=== PATIENT | female | born 1960 | race Caucasian/White ===

== ENCOUNTER → 2018-03-02 | Outpatient (CLI) | payer BC, OTHER ==
[~2018-03-02] MED LIST: ALEVE220 M1 PO; APAP650 PO; AUGMENTIN 875875 M1 PO; CLARITIN10 MG PO; ESTRACE1 MG PO; KEFLEX500 MG PO; LEVOXYL300 MCG PO; LEVOXYL50 MCG PO; LORTAB PO; MIRALAX255 GM; MULTIVITAMINS PO; NABUMETONE 750750 M1 PO; NAPROSYN500 MG PO; NORCO 5-325 TA1 EACH PO; SUDAFED30 MG PO; VITAMIN D1000 UNI1 PO; VITAMINC500 PO; ZOFRAN ODT4 MG PO
== END ==
LOC: CAT 07:48
DX: K76.0 Fatty (change of) liver, not elsewhere classified (principal); K43.9 Ventral hernia without obstruction or gangrene; M47.815 Spondylosis without myelopathy or radiculopathy, thoracolumbar region; M41.85 Other forms of scoliosis, thoracolumbar region

== ENCOUNTER → 2018-05-22 | Outpatient (CLI) | payer BC, OTHER | LOC: ULTRA 07:48 | DX: K76.0 Fatty (change of) liver, not elsewhere classified (principal); R10.12 Left upper quadrant pain ==

== ENCOUNTER → 2018-06-12 | Outpatient (CLI) | payer BC, OTHER | LOC: NUC 09:02 | DX: R10.32 Left lower quadrant pain (principal); R11.0 Nausea ==

== ENCOUNTER 2018-07-20 05:51 | Inpatient (IN) | payer BC, OTHER ==
[~2018-07-20] VITALS: Ht 167.6 cm; Wt 107.5 kg
--- NOTE | ~2018-07-20 | EKG ---
[address] [address] ELECTROCARDIOGRAM REPORT Name: MARY ANNEMINASTEPHAN Vaughn Room #: 150-8 ADM IN M.R.#: [id number] Admission: 07/20/18 Attend Phys: Barbara Marrero MD, Discharge: Date of : 56 Report #: [id number] THIS REPORT FOR: //name// [facility] Test Date: 2018-07-20 Test Time: 09:20:46 Pat Name: STEPHAN TORRE Department: Room: 150 8 Gender: F International Logistics Manager: FARSHAD : 1960 Requested By: Barbara Marrero Order Number: [id number] MD: Dewayne Loza Measurements Intervals [place] Rate: 79 P: 37 AK: 166 QRS: -4 QRSD: 89 T: 44 QT: 409 QTc: 469 Interpretive Statements Sinus rhythm Abnormal R-wave progression, early transition Borderline T wave abnormalities Compared to ECG 06/23/2015 06:46:48 T-wave abnormality now present Electronically Signed On 07-20-2018 16:40:40 BAKERY DECORATOR by Dewayne Loza [email or web address] <ELECTRONICALLY SIGNED> By: Dewayne Loza MD, FAC 07/20/18 1640 9 9 Dewayne Loza MD, [facility] /EPI
--- NOTE | ~2018-07-20 | PATH ---
[facility] [address] [place] [address] PATHOLOGY RPT PROCEDURE Name: WILFREDOHusamERIKARandolphMARY ELLEN Room #: 450-P ADM IN M.R.#: [id number] Admission: 07/20/18 Date of : 56 Discharge: Report #: [id number] Path Case #: [id number] [facility] Accession Number: [id number] . 01 Material submitted: . PART A: ABDOMINAL WALL FASCIA AND MESH PART B: HERNIA SAC . 01 Clinical history: . Ventral hernia, recurrent . 02 Diagnosis: A. Abdominal wall fascia and mesh, repair: - Dense fibrovascular connective tissue along with mesh material. . B. Hernia sac, repair: - Congested fibrovascular connective tissue lined by mesothelium associated with focal chronic inflammation, consistent with hernia sac. (IUV/db; 07/21/18) LBQ/07/21/2018 . 02 Electronically signed: . Muna Guido MD, Pathologist NPI- [id number] . 01 Gross description: . A. The specimen is received in formalin, labeled "Mary Ellen Levine, abdominal wall fascia and mesh", is a pink-thorpe synthetic mesh measuring 18 x 10 with an average less than 0.1 cm thickness partially covered by yellow lobulated adipose tissue. Also received is an elongated fragment of beverly-white rubbery soft tissue measuring 6.0 x 2.2 x 1.0 cm, serially section and a representative phlebotomy services tissue is submitted in A1. A photograph of synthetic is taken. . B. The specimen is received in formalin, labeled "Mary Ellen Levine, hernia sac", are two fibro-membranous segments with attached yellow lobulated adipose tissue measuring 8.0 x 4.0 x 0.6 cm (B1) and 18 x 11 x 0.4 cm (B2). No discrete nodules or masses identified. Bullet Maker tissue is submitted in B1-B2. (SWS; 07/20/2018) [facility] . 02 Pathologist provided ICD-10: K43.2 . 02 CPT . 621508, [id number] [address] [address] PATHOLOGY RPT PROCEDURE Name: WILFREDOHusamMARY ELLEN ENRIQUEZ Room #: 450-P ADM IN M.R.#: [id number] Admission: 07/20/18 Date of : 56 Discharge: Report #: [id number] Path Case #: [id number] Specimen Comment: A courtesy copy of this report has been sent to Specimen Comment: [phone], . Specimen Comment: Report sent to / DR BRAGA Specimen Comment: A duplicate report has been generated due to demographic updates. Performed at: [address], [place] [id number] MD Jeb Ng MD Phone: [phone] Performed at: [address] [id number] MD Muna Guido MD Phone: [phone]
[~2018-07-20 05:51] MED LIST changes: +OMEPRAZOLE40 MG PO
[2018-07-20 09:15] LABS: HEMATOCRIT 44.8 % (37.0-47.0); HEMOGLOBIN 14.6 gm/dL (12.0-15.0)
[2018-07-20 12:47] VITALS: BP 156/86
[2018-07-20 18:00] VITALS: BP 131/80
[2018-07-20 18:30] VITALS: BP 127/83
[2018-07-20 19:00] VITALS: BP 124/78
[2018-07-20 20:18] VITALS: BP 112/72
[2018-07-20 21:22] VITALS: BP 112/72
[2018-07-21 03:51] VITALS: BP 111/78
[2018-07-21 05:10] LABS: CALCIUM 8.8 mg/dL (8.5-10.1); CREATININE 0.8 mg/dL (0.6-1.0); POTASSIUM 4.2 mmol/L (3.5-5.1)
[2018-07-21 05:32] LABS: MCH 30.4 pg (26.0-34.0); MCV 89.6 fL (80.0-100.0); RBC 4.14 mil/uL (4.20-5.00); RDW 13.2 % (10.5-14.5); WBC 10.8 thou/uL (4.0-11.0)
[2018-07-21 05:42] LABS: HEMOGLOBIN 12.6 gm/dL (12.0-15.0)
[2018-07-21 08:30] VITALS: BP 107/66
[2018-07-21 11:55] VITALS: BP 99/62
[2018-07-21 16:15] VITALS: BP 117/68
[2018-07-21 19:02] VITALS: BP 117/74
[2018-07-22 04:55] VITALS: BP 132/89
[2018-07-22 05:51] LABS: ABSOLUTE NEUTROPHILS 4.3 thou/uL (1.4-8.2); BASOPHILS 0.7 % (0.0-2.0); EOSINOPHILS 4.7 % (0.0-3.0); HEMATOCRIT 36.5 % (37.0-47.0); HEMOGLOBIN 12.2 gm/dL (12.0-15.0); LYMPHOCYTES 23.9 % (24.0-44.0); MCH 30.5 pg (26.0-34.0); MCHC 33.5 g/dL (28.0-37.0); MONOCYTES 9.5 % (1.0-8.0); PLATELET COUNT 202 thou/uL (150-400); POLYS 61.2 % (36.0-66.0); RBC 4.01 mil/uL (4.20-5.00); RDW 13.2 % (10.5-14.5)
[2018-07-22 06:04] LABS: CALCIUM 8.6 mg/dL (8.5-10.1); CREATININE 0.8 mg/dL (0.6-1.0)
[2018-07-22 07:24] VITALS: BP 113/71
[2018-07-22 14:20] VITALS: BP 118/66
[2018-07-22 19:04] VITALS: BP 125/74
[2018-07-23 01:45] VITALS: BP 135/78
[2018-07-23 05:31] LABS: BASOPHILS 0.4 % (0.0-2.0); EOSINOPHILS 10.5 % (0.0-3.0); HEMATOCRIT 36.6 % (37.0-47.0); MCH 29.6 pg (26.0-34.0); MCHC 32.9 g/dL (28.0-37.0); MCV 90.1 fL (80.0-100.0); MONOCYTES 9.7 % (1.0-8.0); PLATELET COUNT 225 thou/uL (150-400); POLYS 58.4 % (36.0-66.0); RBC 4.06 mil/uL (4.20-5.00); RDW 12.7 % (10.5-14.5); WBC 6.9 thou/uL (4.0-11.0)
[2018-07-23 05:42] LABS: CALCIUM 8.9 mg/dL (8.5-10.1); CREATININE 0.7 mg/dL (0.6-1.0); POTASSIUM 4.2 mmol/L (3.5-5.1)
[2018-07-23 07:01] VITALS: BP 126/79
[2018-07-23 15:28] VITALS: BP 126/79
== END 2018-07-23 17:54 | disposition home or self-care (01) | DRG 355 ==
LOC: PRE 05:51 → TBA 07:19 → PRE 10:47 → 4W 17:49
PROVIDERS: Surgery
PROC: 0WUF0JZ Supplement Abdominal Wall with Synthetic Substitute, Open Approach (ICD-10-PCS; principal; 2018-07-20)
PROC: 0JQ80ZZ Repair Abdomen Subcutaneous Tissue and Fascia, Open Approach (ICD-10-PCS; principal; 2018-07-20)
DX: K43.0 Incisional hernia with obstruction, without gangrene (principal); E66.9 Obesity, unspecified; Z68.38 Body mass index [BMI] 38.0-38.9, adult; Z79.899 Other long term (current) drug therapy
CPT/HCPCS: 10047; 50010; 50101; 50386; 50455; 50953; 51412; 51437; 56524; 56525; 56527; 56530; 57092; 57190; 62110; 62900; 65002; 65075; 70005

== ENCOUNTER → 2020-06-01 | Outpatient (CLI) | payer OTHER | LOC: CAT 12:56 | PROVIDERS: ATTEND Family Medicine | DX: Z13.6 Encounter for screening for cardiovascular disorders (principal); I25.10 Atherosclerotic heart disease of native coronary artery without angina pectoris; E78.00 Pure hypercholesterolemia, unspecified ==

== ENCOUNTER → 2020-12-05 | Outpatient (CLI) | payer BC, OTHER ==
[2020-12-05 11:23] LABS: CREATININE 0.9 mg/dL (0.6-1.0)
== END ==
LOC: LAB 09:42 → CAT 11:29 → LAB 16:43
PROVIDERS: ATTEND Family Medicine
DX: K43.9 Ventral hernia without obstruction or gangrene (principal); K76.0 Fatty (change of) liver, not elsewhere classified; N28.1 Cyst of kidney, acquired; M47.816 Spondylosis without myelopathy or radiculopathy, lumbar region; M41.84 Other forms of scoliosis, thoracic region; I87.8 Other specified disorders of veins; J98.11 Atelectasis; R10.11 Right upper quadrant pain; R10.12 Left upper quadrant pain; Z90.710 Acquired absence of both cervix and uterus